=== PATIENT | female | born 1980 | race Caucasian/White ===

== ENCOUNTER 2017-04-09 21:54 | Inpatient (IN) | payer MEDICAID ==
[~2017-04-09] VITALS: Ht 152.4 cm; Wt 57.0 kg
[2017-04-09 22:46] LABS: MODE ROOM AIR; MetHgb Venous 0.1 %; Sample Type Blood venous; Venous COHb 0.3 %; Venous Total Hemglobin 11.2 g/dl
[2017-04-09 23:26] LABS: BASOPHILS % 0.6 % (0.0-2.0); EOSINOPHILS # 0.2 10^3/ul (0.0-0.5); EOSINOPHILS % 3.1 % (0.0-7.0); HEMATOCRIT 32.4 % (37.0-47.0); HEMOGLOBIN 11.2 g/dl (12.0-16.0); LYMPHOCYTES % 31.9 % (15.0-51.0); MEAN CORPUSCULAR HGB CONC 34.6 g/dl (32.0-37.0); MEAN CORPUSCULAR VOLUME 89.8 fl (82.0-101.0); MEAN PLATELET VOLUME 11.2 fl (7.4-10.4); MONOCYTE # 0.7 10^3/ul (0.3-0.9); MONOCYTES % 11.5 % (0.0-11.0); NEUTROPHIL # 3.4 10^3/ul (1.6-7.5); NEUTROPHILS % 52.7 % (39.0-77.0); PLATELET COUNT 293 10^3/UL (140-415); RED BLOOD COUNT 3.61 10^6/ul (4.20-5.40); RED CELL DISTRIBUTION WIDTH 13.4 % (11.5-14.5); WHITE BLOOD COUNT 6.4 10^3/ul (4.8-10.8)
--- NOTE | 2017-04-09 23:42 | RADRPT ---
PROCEDURE: XR Chest. CLINICAL INDICATION: Hyperglycemia TECHNIQUE: Single AP portable chest. COMPARISON: No prior Chest x-ray FINDINGS: Right dialysis catheter tip overlying the cavoatrial junction. The cardiac silhouette is at the upp er limits of normal in size. The lungs are clear without pleural effusion or focal consolidation. No pneumothorax. The osseous structures and soft tissues are unremarkable. IMPRESSION: 1. No evidence for active cardiopulmonary disease. RPTAT:AAJJ Physician Kyle Date Time Electronically viewed and signed by Physician Kyle on 04/09/2017 23:41 BHARGAV/
[2017-04-09 23:45] LABS: ALBUMIN 4.5 g/dl (3.3-4.9); ALBUMIN/GLOBULIN RATIO 1.12; CALCIUM 8.1 mg/dl (8.4-10.2); CREATININE 5.85 mg/dl (0.44-1.00); PHOSPHORUS 4.5 mg/dl (2.5-4.9); POTASSIUM 4.9 mmol/L (3.5-5.1); TOTAL PROTEIN 8.5 g/dl (6.1-8.1)
[2017-04-09] MEDS ORDERED: TYL500 PO (23:57)
[2017-04-09] MEDS ORDERED: PRAV40TA76 PO (23:57)
[2017-04-09] MEDS ORDERED: ACET-141 PO (23:57)
[2017-04-09] MEDS ORDERED: AMLO-147 PO (23:57)
[2017-04-10] VITALS (7 sets, daily range): BP systolic 149–189; BP diastolic 89–105; PULSE 78–83; RESP 16–20; TEMP 98.1; Ht 152.4 cm; Wt 57.0 kg
[2017-04-10] MEDS ORDERED: LOSA25TA5 PO (00:02)
[2017-04-10] MEDS ORDERED: ATOR40TA68 PO (00:02)
[2017-04-10] MEDS ORDERED: LANT3I SC (00:02)
[2017-04-10] MEDS ORDERED: CARV3.1260 PO (00:02)
--- NOTE | 2017-04-10 00:04 | RADRPT ---
PROCEDURE: Noncontrast CT Head. CLINICAL INDICATION: Seizure TECHNIQUE: Noncontrast CT of the head was obtained. The administered radiation dose was CTDI vol = 45 mGy, DLP = 720 mGy-cm. One or more of the following dose reduction techniques were used: automate d exposure control, adjustment of the mA and/or kV according to patient size and/or use of iterative reconstruction technique. COMPARISON: No pertinent prior examinations were submitted for comparison. FINDINGS: The ventricles and sulci are within normal limits. There is no acute intracranial hemorrhage or ext ra-axial fluid collection. There is no mass effect. No midline shift is identified. There is no loss of thomas-white differentiation to suggest acute infarction. The orbits are within normal limits. The paranasal sinuses and mastoid air cells are without fluid. No destructive osseous lesion is identified. IMPRESSION: No acute findings. RPTAT: HIKT .Oscar Morataya MD, MD Date Time Electronically viewed and signed by .Oscar Morataya MD, on 04/10/2017 00:03 .T/
[2017-04-10] MEDS ORDERED: PENT400T2 PO (00:06)
[2017-04-10] MEDS ORDERED: INSULIN HUMAN REGULAR 100 UNIT in SOD CHLORIDE 0.9% 99 ML IV STA (00:08)
--- NOTE | 2017-04-10 01:07 | ERA ---
ER Documentation Chief Complaint Date/Time DATE: 04/09/17 TIME: 22:20 Chief Complaint BIB RA FROM HOME FOR SEIZURE, NO HX OF, HIGH BLOOD GLUCOSE, HPI 36y/o diabetic, hypertensive, hyperlipidemic ESRD on hemodialysis T//Sat and left Cotton's palsy but no prior h/o seizures, presents to the ED via [facility] for evaluation of seizure. Patient reports several day h/o generalized malaise. Today, after dialysis experienced left sided tingling sensation and then, as per , loss consciousness and began shaking with seizure like activity and eyes rolling back for several minutes. No urinary or fecal incontinence. caught her and there was no head injury. Afterwards she was confused but now essentially back to baseline. Denies dizziness, headache, visual changes , neck or back pain. No chest pain, palpitations or shortness of breath. No URI symptoms cough or odynophagia. Denies abdominal pain, N/V/D/C. No skin rash. No anorexia, weight loss, night sweats, fevers or chills. ROS All systems reviewed and are negative except as per history of present illness. Medications Home Meds Reported Medications Pentoxifylline* (Pentoxifylline*) 400 Mg Tablet.sa, 400 MG PO DAILY, TAB 04/10/17 Atorvastatin* (Atorvastatin*) 40 Mg Tablet, 40 MG PO QHS, #30 TAB 04/10/17 Carvedilol* (Carvedilol*) 3.125 Mg Tablet, 3.125 MG PO BID, #60 TAB 04/10/17 Insulin Glargine* (Lantus*) 100 Unit/Ml Soln, 20 UNIT SC QHS, #1 VIAL 04/10/17 Losartan Potassium* (Losartan Potassium*) 25 Mg Tablet, 25 MG PO DAILY Y for HTN , TAB 04/10/17 Amlodipine Besylate* (Amlodipine Besylate*) 10 Mg Tablet, 10 MG PO DAILY for HTN , #30 TAB 04/09/17 Pravastatin Sodium* (Pravastatin Sodium*) 40 Mg Tablet, 40 MG PO HS, TAB 04/09/17 Acetaminophen* (Acetaminophen*) 500 MG Extra Strength Tablet, 500 MG PO Q4H Y for PAIN AND OR ELEVATED TEMP, TAB 04/09/17 Discontinued Reported Medications Acetaminophen* (Tylenol*) 500 Mg Tab, 1000 MG PO Q4H Y for PAIN AND OR ELEVATED TEMP, TAB 04/09/17 Allergies Allergies: Coded Allergies: No Known Allergy (Unverified , 04/09/17) PMhx/Soc Reviewed in chart. As per HPI. History of Surgery: Yes ([facility], RT CHEST DIALYSIS ACCESS) Anesthesia Reaction: No Hx Neurological Disorder: No Hx Respiratory Disorders: No Hx Cardiac Disorders: Yes (HTN ) Hx Psychiatric Problems: No Hx Miscellaneous Medical Probl: Yes (DM, HIGH CHOLESTEROL, RENAL FAILURE DIALYSIS (TUE, THUR, SAT)) Hx Alcohol Use: No Hx Substance Use: No Hx Tobacco Use: No Smoking Status: Never smoker FmHx Diabetes but no seizures, cancer or sudden Physical Exam Vitals T:98.6 P:95 R:18 BP:195/116 Pulse Ox: 98% on RA Physical Exam Const: Alert, anxious, moderate distress Head: Atraumatic Eyes: Normal Conjunctiva. RODGER. EOMI. No nystagmus. ENT: Normal External Ears, Nose and Mouth. No intraoral lacerations. Neck: Full range of motion. Nontender. No meningismus. Resp: Clear to auscultation bilaterally Cardio: Regular rate and rhythm, no murmurs Chest Wall: Right Ihra-A-Cath. Nontender. No erythema or induration. Abd: Soft, non tender, non distended. Normal bowel sounds. No masses. Skin: No petechiae or rashes Back: No midline or flank tenderness Ext: No cyanosis, or edema Neur: Awake and alert. Other than Left facial palsy, Cranial Nerves II-XII grossly intact. Motor & sensory equal bilaterally. Psych: Normal Mood and Affect Result Diagram: 04/11/17 1128 04/11/17 1128 Results 24 hrs Laboratory Tests Test 04/09/17 22:24 04/09/17 22:29 04/09/17 22:30 04/10/17 01:02 Bedside Glucose 587mg/dL > 595mg/dL Blood Gas Specimen Source Blood venous Arterial Blood Date Drawn 04/09/2017 10:38:20 PM Arterial Blood Gas Puncture Site VENOUS LINE Aguilar Test N/A Venous Blood pH 7.400 Venous Blood pCO2 (Temp Corrected) 49.0mmHG Venous Blood pO2 (Temp Corrected) 37.1mmHG Venous Blood HCO3 29.7mmol/L Venous Blood Oxygen Saturation 70.3mmHG Venous Blood Base Excess 4.1mmol/L Venous Blood Total Hemoglobin 11.2g/dl Venous Blood Oxyhemoglobin 70.0% Venous Blood Methemoglobin 0.1% Carboxyhemoglobin 0.3% Blood Gas Temperature 37.0C Blood Gas Modality ROOM AIR FiO2 21.0% Blood Gas Notified Whom AA Blood Gas Notified Time 04/09/2017 10:46:06 PM White Blood Count 6.410^3/ul Red Blood Count 3.6110^6/ul Hemoglobin 11.2g/dl Hematocrit 32.4% Mean Corpuscular Volume 89.8fl Mean Corpuscular Hemoglobin 31.0pg Mean Corpuscular Hemoglobin Concent 34.6g/dl Red Cell Distribution Width 13.4% Platelet Count 88035^3/UL Mean Platelet Volume 11.2fl Neutrophils % 52.7% Lymphocytes % 31.9% Monocytes % 11.5% Eosinophils % 3.1% Basophils % 0.6% Nucleated Red Blood Cells % 0.0/100WBC Neutrophils # 3.410^3/ul Lymphocytes # 2.010^3/ul Monocytes # 0.710^3/ul Eosinophils # 0.210^3/ul Basophils # 0.010^3/ul Nucleated Red Blood Cells # 0.010^3/ul Sodium Level 132mmol/L Potassium Level 4.9mmol/L Chloride Level 88mmol/L Carbon Dioxide Level 29mmol/L Anion Gap 20 Blood Urea Nitrogen 27mg/dl Creatinine 5.85mg/dl Glucose Level 631mg/dl Hemoglobin A1c 10.3% Calcium Level 8.1mg/dl Phosphorus Level 4.5mg/dl Magnesium Level 2.0mg/dl Total Bilirubin 0.0mg/dl Direct Bilirubin 0.00mg/dl Indirect Bilirubin 0.0mg/dl Aspartate Amino Transf (AST/SGOT) 46IU/L Alanine Aminotransferase (ALT/SGPT) 13IU/L Alkaline Phosphatase 198IU/L Total Protein 8.5g/dl Albumin 4.5g/dl Globulin 4.00g/dl Albumin/Globulin Ratio 1.12 Test 04/10/17 02:00 Bedside Glucose > 595mg/dL Current Medications Medications (Trade) Dose Ordered Sig/Asaf Route PRN Reason Start Time Stop Time Status Last Admin Dose Admin Insulin Human Regular/Sodium Chloride (Novolin-R/NS) 100 ml @ 0 mls/hr TITRATE STAT IV 04/10/17 00:08 04/10/17 10:40 DC 04/10/17 01:07 Ondansetron HCl (Zofran Inj) 4 mg Q6H PRN IV NAUSEA AND/OR VOMITING 04/10/17 02:30 04/11/17 18:02 DC Acetaminophen (Tylenol Liquid) 650 mg Q6H PRN PO PAIN LEVEL 1-3 OR FEVER 04/10/17 02:30 04/10/17 17:16 DC Dextrose (D50w Syringe) 50 ml Q15M PRN IV For BS 50 or less 04/10/17 02:30 04/10/17 04:39 DC Dextrose (D50w Syringe) 25 ml Q15M PRN IV BS between 50-70 04/10/17 02:30 04/10/17 04:39 DC Diagnostic Test (Pha) (Accu-Chek) 1 ea Q1H XX 04/10/17 02:30 04/10/17 04:35 DC 04/10/17 04:01 Miscellaneous Information (* Miscellaneous Pharmacy Order) HYPOGLYCEMIA TREATMENT HYPOGLYCEM PROTOCOL PRN XX Hypoglycemia (BS < 70) 04/10/17 02:30 04/11/17 18:02 DC EKG: TIME: 23:15. Sinus rhythm. Ventricular rate 96. Voltage criteria for left ventricular hypertrophy. No acute ST segment elevation or depression. No ectopy. EP Interpretation: Abnormal EKG. IMAGING: PROCEDURE: XR Chest. CLINICAL INDICATION: Hyperglycemia TECHNIQUE: Single AP portable chest. COMPARISON: No prior Chest x-ray FINDINGS: Right dialysis catheter tip overlying the cavoatrial junction. The cardiac silhouette is at the upper limits of normal in size. The lungs are clear without pleural effusion or focal consolidation. No pneumothorax. The osseous structures and soft tissues are unremarkable. IMPRESSION: 1. No evidence for active cardiopulmonary disease. RPTAT:AAJJ Physician Kyle Date Time Electronically viewed and signed by Physician Kyle on 04/09/2017 23:41 BHARGAV/ PROCEDURE: Noncontrast CT Head. CLINICAL INDICATION: Seizure TECHNIQUE: Noncontrast CT of the head was obtained. The administered radiation dose was CTDI vol = 45 mGy, DLP = 720 mGy-cm. One or more of the following dose reduction techniques were used: automated exposure control, adjustment of the mA and/or kV according to patient size and/or use of iterative reconstruction technique. COMPARISON: No pertinent prior examinations were submitted for comparison. FINDINGS: The ventricles and sulci are within normal limits. There is no acute intracranial hemorrhage or extra-axial fluid collection. There is no mass effect. No midline shift is identified. There is no loss of thomas-white differentiation to suggest acute infarction. The orbits are within normal limits. The paranasal sinuses and mastoid air cells are without fluid. No destructive osseous lesion is identified. IMPRESSION: No acute findings. 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 First time seizure as witnessed by . CT of the brain performed to rule out mass, bleed, infarct or hydrocephalus is negative. No cardiac dysrhythmia. Critical hyperglycemia with appropriate hyponatremia, IV insulin drip initiated. No DKA or HHS. No headache or signs of meningitis encephalitis or SAH, hence LP deferred. 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 Admit to ICU. CRITICAL CARE STATEMENT: Due to the high probability of sudden clinically significant hemodynamic, cardiovascular and neurologic deterioration, this patient with new onset seizures and critical hyperglycemia requiring Insulin drip necessitated the highest level of my preparedness for sudden, emergent intervention. I provided critical care services, which included extensive review of previous medical records, medication orders, frequent reevaluations of the patients condition and response to treatment, ordering of tests, interpretation of relevant clinical data, and arranging for ongoing care with the admitting physician. Total critical care time associated with the care of this patient, not including other separately reportable procedures: 35 minutes. Counseled patient and family regarding diagnosis, diagnostic results and plan for admission. CALLS/CONSULTS: Time 23:30, Dr. Andrew, Recommends Insulin drip and ICU admission. PATIENT CARE TRANSITIONED: Time: 23:40, Dr. Andrew. Departure Diagnosis: Primary Impression: New onset seizure Additional Impressions: Diabetes mellitus out of control Qualified Code: E13.8 - Uncontrolled other specified diabetes mellitus with complication, without long-term current use of insulin End stage renal disease on dialysis Poorly-controlled hypertension Condition: Critical СЕРГЕЙ RATLIFF MD Apr 10, 2017 01:06
[2017-04-10] MEDS ORDERED: DEXTROSE 50% 50 ML SYRINGE IV PRN ×4 (02:30→05:00)
[2017-04-10] MEDS ORDERED: ONDANSETRON 4 MG INJ IV PRN (02:30)
[2017-04-10] MEDS ORDERED: ACETAMINOPHEN 650MG/20.3ML CUP PO PRN (02:30)
[2017-04-10] MEDS ORDERED: INSULIN HUMAN REGULAR 100 UNIT in SOD CHLORIDE 0.9% 99 ML IV SCH (02:45)
[2017-04-10] MEDS: ACCU-CHEK XX SCH ×2 (03:07→04:01)
[2017-04-10 04:16] LABS: CK-MB 1.42 ng/ml (0.0-2.4)
[2017-04-10 04:31] LABS: TROPONIN-I 0.154 ng/ml (0.00-0.12)
[2017-04-10] MEDS ORDERED: GLUCOSE GEL 15 GRAM TUBE BUCCAL PRN (05:00)
[2017-04-10] MEDS ORDERED: INSULIN ASPART [NOVOLOG] 3 ML PEN SC SCH (05:00)
[2017-04-10] MEDS ORDERED: GLUCAGON 1 MG INJ IM PRN (05:00)
[2017-04-10] MEDS ORDERED: GLUCOSE GEL 15 GRAM TUBE PO PRN ×2 (05:00)
[2017-04-10] MEDS ORDERED: PANTOPRAZOLE 40 MG INJ IV SCH (06:00)
--- NOTE | 2017-04-10 07:27 | HP ---
Date/Time of Note Date/Time of Note DATE: 04/10/17 TIME: 07:12 Assessment/Plan VTE Prophylaxis VTE Prophylaxis Intervention: SCD's Assessment/Plan Chief Complaint/Hosp Course This is a 36 year female being admitted to the ICU floor for: #1 severe hyperglycemia: Patient came in with blood sugar reading greater than 600, though patient does not appear to be in any DKA. PH was 7.4 and bicarbonate BMP was 29. As the patient apparently had new onset seizure the decision was made to control the patient's blood sugars on an insulin drip in the ICU. Once patient's blood sugar is better stabilized patient can likely be downgraded to telemetry. Will monitor the blood sugars every 4 hours. Insulin drip per DKA protocol. Repeat CMP and replete electrolytes as indicated. #2 new onset seizure: Etiology unknown at this time likely could be secondary to hyperglycemia versus other underlying etiology. CAT scan within normal values. Will order MRI of the brain to further evaluate. Will consult neurology. Neurochecks every 4 hours. Ativan as needed #3 end-stage renal disease: Patient is on hemodialysis on Saturday. She recently had her dialysis earlier today. Will avoid nephrotoxic agents. Will consult nephrology for further treatment strategy. Patient has a right chest dialysis catheter #4 hypertension: We will continue to monitor and resume patient's home medications #5 hyperlipidemia: Continue statin. #6 DVT GI prophylaxis: SCDs, acid hermila Further treatment strategy will be implemented as per the clinical course Problems: HPI/ROS Admit Date/Time Admit Date/Time Hx of Present Illness Chief complaint: Seizure This is a 36 her female who comes in today complaining of having seizure. Patient states that for the past few days she has not felt well. She states that she did have dialysis earlier in the day. After dialysis she states that she was walking and she she felt a tingling in her leg and while she was walking she started feeling lightheaded and fainted her was there to catch her. states that the patient passed out and that she started having jerking movements and she was unconscious. It took her some time to recover after the jerking movement stopped. Patient reports that she is compliant with her diabetes medication however she does not check her blood glucose levels daily. She denies any recent illnesses or sick contacts. She denies any recent fevers. Allergies: NKDA Medications: See ANTONIO DE LA FUENT[facility] Const: As per HPI Eyes : No pain discharge or redness or change in visual acuity ENT: No pain, sore throat, congestion, congestion, dysphagia or discharge Respiratory: No shortness of breath, cough, sputum, wheezing, or pleuritic pain Cardiovascular: No chest pain, palpitation, PND, or edema GI : no change in appetite, abdominal pain, nausea, vomiting, diarrhea, constipation, or change in the color his stool Genitourinary: No dysuria, hematuria, flank pain , discharge or CVA tenderness Musculoskeletal: No joint pain, back pain, neck pain, restricted range of motion in neck or joints Skin: No rash, bruising or hives Neuro: As per HPI Endocrine: As per HPI Psych: No hallucination, depression, anxiety or suicidal ideation PMH/Family/Social Past Medical History Diabetes mellitus, end-stage renal disease on HD Saturday, hypertension, hyperlipidemia Past Surgical History Bilateral eye surgery, right chest dialysis catheter Family History Significant Family History: diabetes Social History Alcohol Use: none Smoking Status: Never smoker Drug Use: none Exam/Review of Systems Vital Signs Vitals Vital Signs Date Time Temp Pulse Resp B/P Pulse Ox O2 Delivery O2 Flow Rate FiO2 04/10/17 07:00 78 14 167/94 97 Room Air 04/10/17 05:00 98.6 Exam Exam General: Patient is a well-developed female lying in bed in no acute distress HEENT: Atraumatic, normocephalic. The pupils are equal, round and reactive. Extraocular motor are intact Neck: Supple with full range of motion. No rigidity or meningismus Chest: Right chest dialysis catheter in place Lungs: Clear to auscultation bilaterally no crackles rales or wheezing Heart: Normal S1-S2, Regular rhythm and rate. No overt murmurs appreciated Abdomen: Soft , nontender, nondistended , bowel sounds are present. No guarding no rebound tenderness , No masses or organomegaly. No costovertebral temporal angle mass Extremities: Normal to inspection, no edema no cyanosis Neurologic: Normal mental status, speech normal, cranial nerves II through XII are intact, motor and sensory are intact, no focal weakness Additional Comments PROCEDURE: Noncontrast CT Head. CLINICAL INDICATION: Seizure TECHNIQUE: Noncontrast CT of the head was obtained. The administered radiation dose was CTDI vol = 45 mGy, DLP = 720 mGy-cm. One or more of the following dose reduction techniques were used: automated exposure control, adjustment of the mA and/or kV according to patient size and/or use of iterative reconstruction technique. COMPARISON: No pertinent prior examinations were submitted for comparison. FINDINGS: The ventricles and sulci are within normal limits. There is no acute intracranial hemorrhage or extra-axial fluid collection. There is no mass effect. No midline shift is identified. There is no loss of thomas-white differentiation to suggest acute infarction. The orbits are within normal limits. The paranasal sinuses and mastoid air cells are without fluid. No destructive osseous lesion is identified. IMPRESSION: No acute findings. RPTAT: HIKT .Oscar Morataya MD, Date Time Electronically viewed and signed by .Oscar Morataya MD, MD on 04/10/2017 00:03 .T/ CC: СЕРГЕЙ ARTLIFF MD PROCEDURE: XR Chest. CLINICAL INDICATION: Hyperglycemia TECHNIQUE: Single AP portable chest. COMPARISON: No prior Chest x-ray FINDINGS: Right dialysis catheter tip overlying the cavoatrial junction. The cardiac silhouette is at the upper limits of normal in size. The lungs are clear without pleural effusion or focal consolidation. No pneumothorax. The osseous structures and soft tissues are unremarkable. IMPRESSION: 1. No evidence for active cardiopulmonary disease. RPTAT:AAJJ Physician Kyle Date Time Electronically viewed and signed by Physician Kyle on 04/09/2017 23:41 BHARGAV/ CC: СЕРГЕЙ RATLIFF MD Sinus rhythm. Ventricular rate 96. Voltage criteria for left ventricular hypertrophy. No acute ST segment elevation or depression. No ectopy. EP Interpretation As per ED physician augmentation Labs Result Diagram: 10/09/21 [id number]/[id number] Medications Medications Current Medications Ondansetron HCl (Zofran Inj) 4 mg Q6H PRN IV NAUSEA AND/OR VOMITING; Start 04/10/17 at 02:30 Acetaminophen (Tylenol Liquid) 650 mg Q6H PRN PO PAIN LEVEL 1-3 OR FEVER; Start 04/10/17 at 02:30 Pantoprazole (Protonix Iv) 40 mg DAILY@06 IV Last administered on 04/10/17t 06: 06; Admin Dose 40 MG; Start 04/10/17 at 06:00 Insulin Aspart (Novolog Insulin Pen) NOVOLOG *MODERATE* ALGORI... Q4 SC ; Start 04/10/17 at 05:00; Stop 04/10/17 at 07:59 Miscellaneous Information 1 ea NOTE XX ; Start 04/10/17 at 05:00 Glucose (Glutose) 15 gm Q15M PRN PO DECREASED GLUCOSE; Start 04/10/17 at 05:00 Glucose (Glutose) 22.5 gm Q15M PRN PO DECREASED GLUCOSE; Start 04/10/17 at 05: 00 Dextrose (D50w Syringe) 25 ml Q15M PRN IV DECREASED GLUCOSE; Start 04/10/17 at 05:00 Dextrose (D50w Syringe) 50 ml Q15M PRN IV DECREASED GLUCOSE; Start 04/10/17 at 05:00 Glucagon (Glucagen) 1 mg Q15M PRN IM DECREASED GLUCOSE; Start 04/10/17 at 05:00 Glucose (Glutose) 15 gm Q15M PRN BUCCAL DECREASED GLUCOSE; Start 04/10/17 at 05 :00 Diagnostic Test (Pha) (Accu-Chek) 1 ea 02 XX ; Start 04/11/17 at 02:00 DALIA CHAMPAGNE Apr 10, 2017 07:24
[2017-04-10] MEDS ORDERED: LORAZEPAM 2 MG INJ IV PRN (07:30)
[2017-04-10] MEDS: INSULIN ASPART [NOVOLOG] 3 ML PEN SC SCH ×5 (07:46→20:31)
[2017-04-10 08:22] LABS: ALBUMIN 3.9 g/dl (3.3-4.9); CALCIUM 8.2 mg/dl (8.4-10.2); CREATININE 6.71 mg/dl (0.44-1.00); POTASSIUM 4.2 mmol/L (3.5-5.1); TOTAL PROTEIN 7.8 g/dl (6.1-8.1)
[2017-04-10 09:23] LABS: CK-MB 1.31 ng/ml (0.0-2.4)
[2017-04-10 09:28] LABS: TROPONIN-I 0.161 ng/ml (0.00-0.12)
[2017-04-10] MEDS: INSULIN GLARGINE [LANtus] 3 ML PEN SC SCH (11:06)
--- NOTE | 2017-04-10 12:32 | CONS ---
Date/Time of Note Date/Time of Note DATE: 04/10/17 TIME: 12:28 Assessment/Plan Assessment/Plan Chief Complaint/Hosp Course 36 yo female with IDDM, ESRD, HTN, Left Cotton's Palsy admitted with severe hyperglycemia Glucose >600 with witnessed seizure activity. No further seizures reported suspect etiology secondary to hyperglycemia. Will obtain MRI Brain w/o contrast and baseline Routine EEG will hold off on initiated AED at this time, if further seizures will recommend treatment seizure precautions, ativan prn seizure activity infectious w/u, maintain euglycemia will follow Problems: Consultation Date/Type/Reason Admit Date/Time 04/10/17 Date of Consultation: Apr 10, 2017 Type of Consultation: Neurology Reason for Consultation seizure Referring Provider: DALIA CHAMPAGNE Hx of Present Illness 36 year old female with IDDM with severe hyperglycemia glucose over 600 range, Left [place] Palsy 3 mo ago, ESRD, HTN admitted after generalized seizure lasting 5 mins a/w tongue biting and LOC. She was started on insulin drip for DKA protocol, remains stable no further seizures. She denies hx of seizure in the past. 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, nl mental status, nl speech, nl strength ( Left [place] Palsy peripheral facial weakness) Results Result Diagram: 04/09/17222904/10/17 0733 Results 24 hrs Laboratory Tests Test 04/09/17 22:24 04/09/17 22:29 04/09/17 22:30 04/10/17 01:02 Bedside Glucose 587 *H > 595 *H Blood Gas Specimen Source Blood venous Arterial Blood Date Drawn 04/09/2017 10:38:20 PM Arterial Blood Gas Puncture Site VENOUS LINE Aguilar Test N/A Venous Blood pH 7.400 Venous Blood pCO2 (Temp Corrected) 49.0 H Venous Blood pO2 (Temp Corrected) 37.1 H Venous Blood HCO3 29.7 H Venous Blood Oxygen Saturation 70.3 Venous Blood Base Excess 4.1 Venous Blood Total Hemoglobin 11.2 Venous Blood Oxyhemoglobin 70.0 Venous Blood Methemoglobin 0.1 Carboxyhemoglobin 0.3 Blood Gas Temperature 37.0 Blood Gas Modality ROOM AIR FiO2 21.0 Blood Gas Notified Whom AA Blood Gas Notified Time 04/09/2017 10:46:06 PM White Blood Count 6.4 Red Blood Count 3.61 L Hemoglobin 11.2 L Hematocrit 32.4 L Mean Corpuscular Volume 89.8 Mean Corpuscular Hemoglobin 31.0 Mean Corpuscular Hemoglobin Concent 34.6 Red Cell Distribution Width 13.4 Platelet Count 293 Mean Platelet Volume 11.2 H Neutrophils % 52.7 Lymphocytes % 31.9 Monocytes % 11.5 H Eosinophils % 3.1 Basophils % 0.6 Nucleated Red Blood Cells % 0.0 Neutrophils # 3.4 Lymphocytes # 2.0 Monocytes # 0.7 Eosinophils # 0.2 Basophils # 0.0 Nucleated Red Blood Cells # 0.0 Sodium Level 132 L Potassium Level 4.9 Chloride Level 88 L Carbon Dioxide Level 29 Anion Gap 20 H Blood Urea Nitrogen 27 H Creatinine 5.85 H Glucose Level 631 *H Hemoglobin A1c 10.3 H Calcium Level 8.1 L Phosphorus Level 4.5 Magnesium Level 2.0 Total Bilirubin 0.0 L Direct Bilirubin 0.00 Indirect Bilirubin 0.0 Aspartate Amino Transf (AST/SGOT) 46 Alanine Aminotransferase (ALT/SGPT) 13 Alkaline Phosphatase 198 H Total Protein 8.5 H Albumin 4.5 Globulin 4.00 H Albumin/Globulin Ratio 1.12 Test 04/10/17 02:00 04/10/17 03:00 04/10/17 03:20 04/10/17 04:00 Bedside Glucose > 595 *H 333 H 153 Phosphorus Level 4.8 Creatine Kinase 152 Creatine Kinase Index 0.9 Creatinine Kinase MB (Mass) 1.42 Troponin I 0.154 *H Test 04/10/17 05:09 04/10/17 07:33 04/10/17 07:35 04/10/17 11:03 Bedside Glucose 94 159 172 Sodium Level 136 Potassium Level 4.2 Chloride Level 97 Carbon Dioxide Level 28 Anion Gap 15 Blood Urea Nitrogen 35 H Creatinine 6.71 H Glucose Level 152 # Hemoglobin A1c 10.6 H Calcium Level 8.2 L Total Bilirubin 0.0 L Direct Bilirubin 0.00 Indirect Bilirubin 0.0 Aspartate Amino Transf (AST/SGOT) 44 Alanine Aminotransferase (ALT/SGPT) 19 Alkaline Phosphatase 163 H Creatine Kinase 152 Creatine Kinase Index 0.9 Creatinine Kinase MB (Mass) 1.31 Troponin I 0.161 *H Total Protein 7.8 Albumin 3.9 Globulin 3.90 H Albumin/Globulin Ratio 1.00 Medications Medications Current Medications Ondansetron HCl (Zofran Inj) 4 mg Q6H PRN IV NAUSEA AND/OR VOMITING; Start 04/10/17 at 02:30 Acetaminophen (Tylenol Liquid) 650 mg Q6H PRN PO PAIN LEVEL 1-3 OR FEVER; Start 04/10/17 at 02:30 Pantoprazole (Protonix Iv) 40 mg DAILY@06 IV Last administered on 04/10/17 06: 06; Admin Dose 40 MG; Start 04/10/17 at 06:00 Miscellaneous Information 1 ea NOTE XX ; Start 04/10/17 at 05:00 Glucose (Glutose) 15 gm Q15M PRN PO DECREASED GLUCOSE; Start 04/10/17 at 05:00 Glucose (Glutose) 22.5 gm Q15M PRN PO DECREASED GLUCOSE; Start 04/10/17 at 05: 00 Dextrose (D50w Syringe) 25 ml Q15M PRN IV DECREASED GLUCOSE; Start 04/10/17 at 05:00 Dextrose (D50w Syringe) 50 ml Q15M PRN IV DECREASED GLUCOSE; Start 04/10/17 at 05:00 Glucagon (Glucagen) 1 mg Q15M PRN IM DECREASED GLUCOSE; Start 04/10/17 at 05:00 Glucose (Glutose) 15 gm Q15M PRN BUCCAL DECREASED GLUCOSE; Start 04/10/17 at 05 :00 Diagnostic Test (Pha) (Accu-Chek) 1 ea 02 XX ; Start 04/11/17 at 02:00 Lorazepam (Ativan) 1 mg Q2H PRN IV SEIZURES; Start 04/10/17 at 07:30 Insulin Glargine (Lantus) 15 unit DAILY SC Last administered on 04/10/17 11:06 ; Admin Dose 15 UNIT; Start 04/10/17 at 11:00 DANE SUTHERLAND MD Apr 10, 2017 12:32
[2017-04-10] MEDS: AMLODIPINE 10 MG TAB PO SCH (17:30)
[2017-04-10] MEDS ORDERED: ACETAMINOPHEN 500 MG TAB PO PRN (17:30)
[2017-04-10] MEDS ORDERED: INSULIN GLARGINE [LANtus] 3 ML PEN SC SCH (21:00)
[2017-04-10] MEDS ORDERED: ATORVASTATIN 40 MG TAB PO SCH (21:00)
[2017-04-10] MEDS ORDERED: ATORVASTATIN 10 MG TAB PO SCH (21:00)
[2017-04-11] VITALS (18 sets, daily range): BP systolic 128–161; BP diastolic 72–92; PULSE 75–88; RESP 20–22
--- NOTE | 2017-04-11 00:13 | RADRPT ---
PROCEDURE: MR Brain noncontrast. CLINICAL INDICATION: Seizure TECHNIQUE: Multiplanar multisequence noncontrast MRI of the brain was performed. COMPARISON: CT brain 04/09/2017 FINDINGS: There is no restricted diffusion to suggest acute ischemia/infarct. There is no evidence of acute in tracranial hemorrhage, midline shift, or mass effect. No extra-axial collection is seen. GRE images show no evidence of hemosiderin deposition. The cerebral sulci and ventricles are within normal limi ts in size and configuration for patient's age. Several small T2 / FLAIR hyperintense foci scattered in the bilateral frontal periventricular, deep, and juxta cortical cerebral white matter are nonspe cific in appearance. A small T2 / FLAIR hyperintense, T1 hypointense lesion in the left central bennie is also noted. At least one lesion located in the left frontal ohara radiata demonstrates correspo nding T1 hypointensity (series 9, image 72). Differential considerations include: chronic microangi opathic change, demyelinating process, sequelae of complicated migraine, and sequelae of other infla mmatory/infectious etiologies. The bilateral mesial temporal lobe structures are normal and symmetric in size, morphology, and signal intensity. The sella, parasellar, and suprasellar regions are grossly unremarkable. The cerebellum is normal in size, morphology and signal intensity. The int racranial large vascular flow voids are preserved, suggesting patency. 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 There is suggestion of prior bilateral cataract surgery. There is mild mucosal thi ckening in the bilateral ethmoid sinuses, right sphenoid sinus, and right maxillary sinus. No air-fl uid levels are seen to suggest acute sinusitis. The mastoid air cells are clear. No destructive osse ous lesion is identified. IMPRESSION: 1. No evidence of acute ischemia/infarct, intracranial hemorrhage, midline shift, or extra-axial col lection. 2. Several small T2 / FLAIR hyperintense foci, some with corresponding T1 hypointensity are seen in the bifrontal cerebral white matter and one in the left central bennie. The imaging features are nonsp ecific. Differential considerations include: chronic microangiopathic change, demyelinating process , sequelae of complicated migraine, and sequelae of other inflammatory/infectious etiologies. 3. Mild paranasal sinus mucosal thickening without air-fluid levels to suggest acute sinusitis. RPTAT: HRC Portia Jacinto Physician Date Time Electronically viewed and signed by Portia Jacinto, Physician on 04/11/2017 00:12 /
--- NOTE | 2017-04-11 01:15 | CONS ---
DATE OF ADMISSION: 04/10/2017 DATE OF CONSULTATION: TYPE OF CONSULTATION: Nephrology. REASON FOR CONSULTATION: End-stage renal disease. REQUESTING PHYSICIAN: Dr. 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 T he patient stated after dialysis, she was walking and she felt suddenly a tingling in her leg and wh en she was walking, started feeling lightheaded and fainted. Patient then started having jerky move ments that lasted for a few minutes. The patient was then brought to [facility]. Upon arrival, the patient had a CT scan of the brain which showed no acute findings. In the emerge ncy room, the patient was given IV fluids. In terms of patient's renal history, she has been on dialysis for approximately 3 months due to unde rlying diabetes. The patient dialyzes on Saturday, , Saturday and her next scheduled dialysi s is scheduled for tomorrow. The patient otherwise denies any hemoptysis, hemetemesis, hematochezia . PAST MEDICAL HISTORY: As stated above, history of end-stage renal disease, history of diabetes, hyp ertension, dyslipidemia. PAST SURGICAL HISTORY: Status post Perm-A-Cath placement. ALLERGIES: NONE. FAMILY HISTORY: No family history of kidney disease or heart disease. SOCIAL HISTORY: Does not drink, smoke or do drugs. MEDICATIONS: Reviewed. REVIEW OF SYSTEMS: A 14-point review of systems was conducted. Pertinent positives in HPI, otherwi se negative. PHYSICAL EXAMINATION: VITAL SIGNS: Blood pressure is 171/100, respirations 17, pulse 81, temperature 98.0. HEENT: Head is normocephalic. NECK: Supple. HEART: Regular rate. LUNGS: Show diminished breath sounds at base. ABDOMEN: Soft, nontender to palpation. No rebound or guarding. EXTREMITIES: Negative for clubbing, cyanosis, no edema. DERMATOLOGIC: No rashes. MUSCULOSKELETAL: No joint effusions. NEUROLOGIC: No focal deficits. LABORATORY DATA: Shows sodium 136, potassium 4.2, chloride 97, BUN 35, creatinine 6.71. White coun t 6.1, hemoglobin 9.2, hematocrit 32.5, platelet count 293. The patient's chest x-ray shows no acut e findings. ASSESSMENT AND PLAN: This is a 36-year-old female who presents with: 1. End-stage renal disease. The patient is on dialysis Saturday, , Saturday, access is a Pe rm-A-Cath. Plan for hemodialysis tomorrow. 2. Anemia. Monitor hemoglobin and hematocrit levels. Continue Epogen with hemodialysis as needed. 3. Hypertension. Continue current blood pressure regimen. 4. Mineral bone disorder. Monitor calcium and phosphorus levels. 5. New onset seizure. Continue to monitor. Follow up with neurology. 6. Diabetes. Continue current insulin regimen. Thank you, Dr. Andrew, for this interesting consult. It will be a pleasure to follow the patient w michelle waldrop throughout the hospital course. Dictated By: NIDA MCNAMARA/BG Conf#: [id number] DID#: [id number]
[2017-04-11] MEDS ORDERED: ACCUCHECK AT 2AM (Patients on SS coverage) XX SCH (02:00)
[2017-04-11] MEDS ORDERED: ACCU-CHEK XX SCH ×2 (02:00)
[2017-04-11] MEDS: INSULIN ASPART [NOVOLOG] 3 ML PEN SC SCH ×6 (07:55→17:42)
[2017-04-11] MEDS: AMLODIPINE 10 MG TAB PO SCH (08:08)
[2017-04-11] MEDS ORDERED: PENTOXIFYLLINE (SR) 400 MG TAB PO SCH (09:00)
[2017-04-11] MEDS: INSULIN GLARGINE [LANtus] 3 ML PEN SC SCH (09:56)
--- NOTE | 2017-04-11 10:40 | CONS ---
Date/Time of Note Date/Time of Note DATE: 04/11/17 TIME: 10:39 Consult Date/Type/Reason Admit Date/Time Apr 10, 2017 at 02:33 Initial Consult Date 04/10/17 Type of Consultation: Neurology Reason for Consultation seizure hyperglycemia Ordering Provider: DALIA CHMAPAGNE Subjective no seizures overnight no new complaints Objective Vital Signs Date Time Temp Pulse Resp B/P Pulse Ox O2 Delivery O2 Flow Rate FiO2 04/11/17 08:07 78 04/11/17 07:49 98.3 20 155/88 96 04/10/17 17:09 Room Air Intake and Output 04/10/17 04/10/17 04/11/17 15:00 23:00 07:00 Intake Total 460 ml 180 ml Balance 460 ml 180 ml Exam Constitutional: alert, oriented, well developed Psych: no complaints 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, nl mental status, nl speech, nl strength ( Left [place] Palsy peripheral facial weakness) Results/Medications Result Diagram: 04/09/17 2230 04/10/17 0733 Results 24 hrs Laboratory Tests Test 04/10/17 11:03 04/10/17 17:11 04/10/17 20:27 04/11/17 01:35 Bedside Glucose 172 88 251 H 138 Test 04/11/17 08:03 04/11/17 08:05 04/11/17 09:42 Phosphorus Level 8.7 #H Bedside Glucose 112 178 Medications Current Medications Ondansetron HCl (Zofran Inj) 4 mg Q6H PRN IV NAUSEA AND/OR VOMITING; Start 04/10/17 at 02:30 Miscellaneous Information 1 ea NOTE XX ; Start 04/10/17 at 05:00 Glucose (Glutose) 15 gm Q15M PRN PO DECREASED GLUCOSE; Start 04/10/17 at 05:00 Glucose (Glutose) 22.5 gm Q15M PRN PO DECREASED GLUCOSE; Start 04/10/17 at 05: 00 Dextrose (D50w Syringe) 25 ml Q15M PRN IV DECREASED GLUCOSE; Start 04/10/17 at 05:00 Dextrose (D50w Syringe) 50 ml Q15M PRN IV DECREASED GLUCOSE; Start 04/10/17 at 05:00 Glucagon (Glucagen) 1 mg Q15M PRN IM DECREASED GLUCOSE; Start 04/10/17 at 05:00 Glucose (Glutose) 15 gm Q15M PRN BUCCAL DECREASED GLUCOSE; Start 04/10/17 at 05 :00 Lorazepam (Ativan) 1 mg Q2H PRN IV SEIZURES; Start 04/10/17 at 07:30 Insulin Glargine (Lantus) 15 unit DAILY SC Last administered on 04/11/17 09:56 ; Admin Dose 15 UNIT; Start 04/10/17 at 11:00 Diagnostic Test (Pha) (Accu-Chek) 1 ea 02 XX ; Start 04/11/17 at 02:00 Acetaminophen (Tylenol Tab) 500 mg Q4H PRN PO PAIN AND OR ELEVATED TEMP; Start 04/10/17 at 17:30 Amlodipine Besylate (Norvasc) 10 mg DAILY PO Last administered on 04/11/17 08: 08; Admin Dose 10 MG; Start 04/10/17 at 17:30 Atorvastatin Calcium (Lipitor) 40 mg QHS PO Last administered on 04/10/17 20: 29; Admin Dose 40 MG; Start 04/10/17 at 21:00 Carvedilol (Coreg) 3.125 mg BID PO Last administered on 04/11/17 08:09; Admin Dose 3.125 MG; Start 04/10/17 at 17:14 Pentoxifylline (Trental) 400 mg DAILY PO Last administered on 04/11/17 08:09; Admin Dose 400 MG; Start 04/11/17 at 09:00 Atorvastatin Calcium (Lipitor) 10 mg DAILY@21 PO Last administered on 20:29; Admin Dose 10 MG; Start 04/10/17 at 21:00 Assessment/Plan Chief Complaint/Hosp Course 36 yo female with IDDM, ESRD, HTN, Left Cotton's Palsy admitted with severe hyperglycemia Glucose >600 with witnessed seizure activity. No further seizures reported suspect etiology secondary to hyperglycemia. Will obtain MRI Brain w/o contrast shows multiple white matter changes likely from chronic hypertension, DM related to small vessel disease Routine EEG report pending will hold off on initiated AED at this time, if further seizures will recommend treatment seizure precautions, ativan prn seizure activity infectious w/u, maintain euglycemia driving prohibited up to 6 mo. per [place] state regulations Problems: DANE SUTHERLAND MD Apr 11, 2017 10:40
[2017-04-11 12:23] LABS: BASOPHIL # 0.1 10^3/ul (0.0-0.1); BASOPHILS % 0.6 % (0.0-2.0); EOSINOPHILS # 0.2 10^3/ul (0.0-0.5); EOSINOPHILS % 2.4 % (0.0-7.0); HEMATOCRIT 30.8 % (37.0-47.0); HEMOGLOBIN 10.3 g/dl (12.0-16.0); LYMPHOCYTES # 2.3 10^3/ul (0.8-2.9); LYMPHOCYTES % 27.4 % (15.0-51.0); MEAN CORPUSCULAR HEMOGLOBIN 29.6 pg (29.0-33.0); MEAN CORPUSCULAR HGB CONC 33.4 g/dl (32.0-37.0); MEAN CORPUSCULAR VOLUME 88.5 fl (82.0-101.0); MEAN PLATELET VOLUME 10.7 fl (7.4-10.4); MONOCYTE # 0.8 10^3/ul (0.3-0.9); MONOCYTES % 9.1 % (0.0-11.0); NEUTROPHILS % 60.1 % (39.0-77.0); PLATELET COUNT 273 10^3/UL (140-415); RED BLOOD COUNT 3.48 10^6/ul (4.20-5.40); RED CELL DISTRIBUTION WIDTH 13.7 % (11.5-14.5); WHITE BLOOD COUNT 8.3 10^3/ul (4.8-10.8)
[2017-04-11 12:26] LABS: ALBUMIN/GLOBULIN RATIO 1.08; CALCIUM 8.4 mg/dl (8.4-10.2); CREATININE 9.78 mg/dl (0.44-1.00); TOTAL PROTEIN 7.7 g/dl (6.1-8.1)
--- NOTE | 2017-04-11 13:34 | PN ---
DATE: 04/11/2017 SUBJECTIVE: The patient is stable. No events overnight. No fevers, chills, nausea, vomiting, no s hortness of breath. The patient is pending hemodialysis today. OBJECTIVE: VITAL SIGNS: Blood pressure is 155/88, temperature 98.3, pulse is 78, respirations 20. HEENT: Head is normocephalic. NECK: Supple. HEART: Regular rate. LUNGS: Show diminished breath sounds at base. ABDOMEN: Soft, nontender to palpation without rebound or guarding. EXTREMITIES: Negative for clubbing, cyanosis, no edema. DERMATOLOGIC: No rashes. MUSCULOSKELETAL: No joint effusions. NEUROLOGIC: No change in exam. MEDICATIONS: Have been reviewed. LABORATORY DATA: Has been reviewed. ASSESSMENT AND PLAN: 1. End-stage renal disease. Plan for hemodialysis today. Will dialyze for 3 hours on 3 K bath, ca lcium 2.5. The patient's access is Perm-A-Cath 2. Anemia. Continue to monitor change . We will give Epogen as needed. 3. Hypertension. Continue current blood pressure regimen. Continue ultrafiltration dialysis. 4. monitor calcium and phosphorus levels. 5. Diabetes. Continue current insulin regimen. 6. History of new onset seizures. Follow up with neurology. Dictated By: NIDA MCNAMARA/BG Conf#: [id number] DID#: [id number]
--- NOTE | 2017-04-11 13:42 | PDOCDIS ---
Discharge Instructions DIAGNOSIS Discharge Diagnosis Seizure CONDITION Patient Condition: Fair FOLLOW UP/APPOINTMENTS Follow-up Plan It is very important to maintain good control of your blood sugar to prevent seizures Continue takign insulin everday as your doctor has prescribed CARLITA LAMA MD Apr 11, 2017 13:42
--- NOTE | 2017-04-11 17:40 | SP ---
DATE OF PROCEDURE: 04/10/2017 EEG REPORT HISTORY: This is a 36-year-old woman with end-stage renal disease, diabetes, was admitted with high blood glucose. EEG is to rule out seizure activity. CURRENT MEDICATIONS: 1. Trental 2. Lipitor. 3. Norvasc. PROCEDURE: Utilizing a 16-channel EEG machine, cap scalp electrodes were applied in accordance with International 10-20 system. [id number] and heyei-fk-hhr montages were displayed. Electrical i mpedances were measured and reported. DESCRIPTION: During the resting state, posterior dominant rhythm of about 7 to 8 Hz were seen bihem ispherically. Photic stimulation had a good response. Hyperventilation did not attenuate the rhyth m. There was no focal lateralizing or epileptiform discharge identified. INTERPRETATION: This is a mildly abnormal EEG due to presence of mild generalized background slowin g without any epileptiform activity consistent with mild encephalopathy. Please correlate these fin dings with the patient's clinical picture. Dictated By: LAURO VOGT/BG Conf#: [id number] DID#: [id number]
--- NOTE | 2017-04-12 10:42 | DS ---
Date/Time of Note Date/Time of Note DATE: 04/12/17 TIME: 10:41 Discharge Summary Admission/Discharge Info Admit Date/Time Apr 10, 2017 at 02:33 Discharge Date/Time Apr 11, 2017 at 17:55 Discharge Diagnosis Seizure Patient Condition: Fair Hx of Present Illness Chief complaint: Seizure This is a 36 her female who comes in today complaining of having seizure. Patient states that for the past few days she has not felt well. She states that she did have dialysis earlier in the day. After dialysis she states that she was walking and she she felt a tingling in her leg and while she was walking she started feeling lightheaded and fainted her was there to catch her. states that the patient passed out and that she started having jerking movements and she was unconscious. It took her some time to recover after the jerking movement stopped. Patient reports that she is compliant with her diabetes medication however she does not check her blood glucose levels daily. She denies any recent illnesses or sick contacts. She denies any recent fevers. Allergies: NKDA Medications: See [facility] Hospital Course 36 yo female with IDDM, ESRD, HTN, Left Cotton's Palsy admitted with severe hyperglycemia Glucose >600 with witnessed seizure activity. No further seizures reported suspect etiology secondary to hyperglycemia. Patient was found to have severe hyperglycemia. This was corrected with IV insulin. She underwent EEG which was unremarkable. Head imaging showed findigns consistent with chronic hyperglycemia. She was seen by neurologist who did not recommend starting AEDs at this time. She was discharged with recommendation to maintain euglycemia to prevent further seizures. She also underwent 1 HD session Home Meds Reported Medications Pentoxifylline* (Pentoxifylline*) 400 Mg Tablet.sa, 400 MG PO DAILY, TAB 04/10/17 Atorvastatin* (Atorvastatin*) 40 Mg Tablet, 40 MG PO QHS, #30 TAB 04/10/17 Carvedilol* (Carvedilol*) 3.125 Mg Tablet, 3.125 MG PO BID, #60 TAB 04/10/17 Insulin Glargine* (Lantus*) 100 Unit/Ml Soln, 20 UNIT SC QHS, #1 VIAL 04/10/17 Losartan Potassium* (Losartan Potassium*) 25 Mg Tablet, 25 MG PO DAILY Y for HTN , TAB 04/10/17 Amlodipine Besylate* (Amlodipine Besylate*) 10 Mg Tablet, 10 MG PO DAILY for HTN , #30 TAB 04/09/17 Pravastatin Sodium* (Pravastatin Sodium*) 40 Mg Tablet, 40 MG PO HS, TAB 04/09/17 Acetaminophen* (Acetaminophen*) 500 MG Extra Strength Tablet, 500 MG PO Q4H Y for PAIN AND OR ELEVATED TEMP, TAB 04/09/17 Discontinued Reported Medications Acetaminophen* (Tylenol*) 500 Mg Tab, 1000 MG PO Q4H Y for PAIN AND OR ELEVATED TEMP, TAB 04/09/17 Follow-up Plan It is very important to maintain good control of your blood sugar to prevent seizures Continue takign insulin everday as your doctor has prescribed Primary Care Provider Basil Harris Pending Labs Laboratory Tests Test 04/11/17 11:28 04/11/17 12:28 04/11/17 17:36 White Blood Count 8.310^3/ul (4.8-10.8) Red Blood Count 3.4810^6/ul (4.20-5.40) Hemoglobin 10.3g/dl (12.0-16.0) Hematocrit 30.8% (37.0-47.0) Mean Corpuscular Volume 88.5fl (82.0-101.0) Mean Corpuscular Hemoglobin 29.6pg (29.0-33.0) Mean Corpuscular Hemoglobin Concent 33.4g/dl (32.0-37.0) Red Cell Distribution Width 13.7% (11.5-14.5) Platelet Count 40785^3/UL (140-415) Mean Platelet Volume 10.7fl (7.4-10.4) Neutrophils % 60.1% (39.0-77.0) Lymphocytes % 27.4% (15.0-51.0) Monocytes % 9.1% (0.0-11.0) Eosinophils % 2.4% (0.0-7.0) Basophils % 0.6% (0.0-2.0) Nucleated Red Blood Cells % 0.0/100WBC (0.0-0.0) Neutrophils # 5.010^3/ul (1.6-7.5) Lymphocytes # 2.310^3/ul (0.8-2.9) Monocytes # 0.810^3/ul (0.3-0.9) Eosinophils # 0.210^3/ul (0.0-0.5) Basophils # 0.110^3/ul (0.0-0.1) Nucleated Red Blood Cells # 0.010^3/ul (0.0-0.0) Sodium Level 137mmol/L (135-144) Potassium Level 5.0mmol/L (3.5-5.1) Chloride Level 96mmol/L (97-110) Carbon Dioxide Level 27mmol/L (21-31) Anion Gap 19 (8-16) Blood Urea Nitrogen 58mg/dl (7-20) Creatinine 9.78mg/dl (0.44-1.00) Glucose Level 151mg/dl (70-220) Calcium Level 8.4mg/dl (8.4-10.2) Total Bilirubin 0.0mg/dl (0.2-1.3) Direct Bilirubin 0.00mg/dl (0.00-0.20) Indirect Bilirubin 0.0mg/dl (0-1.1) Aspartate Amino Transf (AST/SGOT) 83IU/L (15-46) Alanine Aminotransferase (ALT/SGPT) 14IU/L (13-69) Alkaline Phosphatase 105IU/L (42-121) Total Protein 7.7g/dl (6.1-8.1) Albumin 4.0g/dl (3.3-4.9) Globulin 3.70g/dl (1.3-3.2) Albumin/Globulin Ratio 1.08 Bedside Glucose 133mg/dL (70-220) 210mg/dL (70-220) CARLITA LAMA MD Apr 12, 2017 10:42
== END 2017-04-11 17:55 | disposition home or self-care (01) | DRG 637 ==
LOC: E/R 21:54 → TEL 04-10 02:33
PROVIDERS: ADMIT Family Medicine; ATTEND Family Medicine
PROC: 5A1D70Z Performance of Urinary Filtration, Intermittent, Less than 6 Hours Per Day (ICD-10-PCS; principal; 2017-04-10)
DX: E11.10 Type 2 diabetes mellitus with ketoacidosis without coma (principal); G93.40 Encephalopathy, unspecified; R56.9 Unspecified convulsions; I12.0 Hypertensive chronic kidney disease with stage 5 chronic kidney disease or end stage renal disease; N18.6 End stage renal disease; E11.22 Type 2 diabetes mellitus with diabetic chronic kidney disease; Z99.2 Dependence on renal dialysis; G51.0 Bell's palsy; E78.5 Hyperlipidemia, unspecified
CPT/HCPCS: 36415; 70450; 70551; 71010; 80053; 82550; 82553; 82803; 82962; 83036; 83735; 84100; 84484; 85025; 87081; 90935; 93005; 95819; 96372; 96374; 96375; C9113; J1815

== ENCOUNTER 2017-04-16 05:50 | Emergency (ER) | payer MEDICAID ==
[~2017-04-16] VITALS: Ht 157.5 cm; Wt 59.0 kg
[~2017-04-16 05:50] MED LIST: ACET-141 PO; AMLO-147 PO; ATOR40TA68 PO; CARV3.1260 PO; LANT3I SC; LOSA25TA5 PO; PENT400T2 PO; PRAV40TA76 PO
[2017-04-16 05:53] VITALS: Ht 157.5 cm; Wt 59.0 kg
--- NOTE | 2017-04-16 06:40 | RADRPT ---
PROCEDURE: CHEST - 1 VIEW CLINICAL INDICATION: 36-year-old female with chest pain. TECHNIQUE: A single frontal AP upright portable view of the chest was performed. The images were reviewed on a PACS workstation. COMPARISON: None. FINDINGS: There is a right internal jugular tunneled hemodialysis catheter with the tip at the right atrial le sy The cardiomediastinal silhouette has a normal appearance. There is no evidence for an infiltrat e. There is no evidence for congestive heart failure. There is no evidence for pneumothorax. The os seous structures are intact. IMPRESSION: 1. Right internal jugular tunneled hemodialysis catheter. 2. No evidence for active cardiopulmonary disease. .Herminio Jj MD, Date Time Electronically viewed and signed by .Herminio Jj MD, on 04/16/2017 06:40 .M/
[2017-04-16 06:59] LABS: BASOPHIL # 0.1 10^3/ul (0.0-0.1); BASOPHILS % 0.6 % (0.0-2.0); EOSINOPHILS # 0.4 10^3/ul (0.0-0.5); EOSINOPHILS % 2.8 % (0.0-7.0); HEMATOCRIT 29.8 % (37.0-47.0); HEMOGLOBIN 10.2 g/dl (12.0-16.0); LYMPHOCYTES # 3.4 10^3/ul (0.8-2.9); MEAN CORPUSCULAR HGB CONC 34.2 g/dl (32.0-37.0); MEAN CORPUSCULAR VOLUME 90.6 fl (82.0-101.0); MEAN PLATELET VOLUME 10.8 fl (7.4-10.4); MONOCYTE # 1.1 10^3/ul (0.3-0.9); MONOCYTES % 8.5 % (0.0-11.0); NEUTROPHIL # 8.4 10^3/ul (1.6-7.5); NEUTROPHILS % 62.8 % (39.0-77.0); PLATELET COUNT 302 10^3/UL (140-415); RED BLOOD COUNT 3.29 10^6/ul (4.20-5.40); RED CELL DISTRIBUTION WIDTH 13.2 % (11.5-14.5); WHITE BLOOD COUNT 13.4 10^3/ul (4.8-10.8)
[2017-04-16] MEDS ORDERED: morphine 4 MG/ML VIAL IV STA (07:17)
[2017-04-16] MEDS ORDERED: ONDANSETRON 4 MG INJ IV STA (07:17)
[2017-04-16 07:19] LABS: CALCIUM 8.7 mg/dl (8.4-10.2); CREATININE 10.63 mg/dl (0.44-1.00)
[2017-04-16 07:22] LABS: POTASSIUM 6.4 mmol/L (3.5-5.1)
[2017-04-16] MEDS ORDERED: NA BICARBONATE 8.4% 50 ML SYG IV STA (07:29)
[2017-04-16] MEDS ORDERED: INSULIN REGULAR, HUMAN 100 UNIT/1 ML 3ML VIAL IV STA (07:29)
[2017-04-16 07:30] LABS: TROPONIN-I 0.031 ng/ml (0.00-0.12)
[2017-04-16] MEDS ORDERED: DEXTROSE 50% 50 ML SYRINGE IV PRN (07:30)
[2017-04-16] MEDS ORDERED: IBUP-1542 PO (07:32)
[2017-04-16] MEDS ORDERED: HYDR-902 PO (07:32)
--- NOTE | 2017-04-16 07:35 | ERD ---
ER Documentation Chief Complaint Date/Time DATE: 04/16/17 TIME: 07:33 Chief Complaint RU CWP radiating to back(more on backpain) - pt has permacath on HD HPI This 36-year-old dialysis patient here for pain in her right chest wall and right back for the past day. The patient complains of sharp pain is worse when she takes a deep breath or when she rotates her trunk or moves. She has no shortness of breath. The patient is on hemodialysis and is due does have her dialysis treatment today a 30 in the morning. Denies any recent trauma pushing pulling lifting injury no cough. No palpitations no dyspnea on exertion ROS All systems reviewed and are negative except as per history of present illness. Medications Home Meds Active Scripts Hydrocodone/Acetaminophen ([place] 10-325 Tablet) 1 Each Tablet, 1 TAB PO Q6H Y for PAIN, #7 TAB Prov:CHARLIE SEGURA. DO 04/16/17 Ibuprofen* (Motrin*) 600 Mg Tab, 600 MG PO Q8, #30 TAB Prov:NUNU SEGURASTSAVANAS A. DO 04/16/17 Reported Medications Pentoxifylline* (Pentoxifylline*) 400 Mg Tablet.sa, 400 MG PO DAILY, TAB 04/10/17 Atorvastatin* (Atorvastatin*) 40 Mg Tablet, 40 MG PO QHS, #30 TAB 04/10/17 Carvedilol* (Carvedilol*) 3.125 Mg Tablet, 3.125 MG PO BID, #60 TAB 04/10/17 Insulin Glargine* (Lantus*) 100 Unit/Ml Soln, 20 UNIT SC QHS, #1 VIAL 04/10/17 Losartan Potassium* (Losartan Potassium*) 25 Mg Tablet, 25 MG PO DAILY Y for HTN , TAB 04/10/17 Amlodipine Besylate* (Amlodipine Besylate*) 10 Mg Tablet, 10 MG PO DAILY for HTN , #30 TAB 04/09/17 Pravastatin Sodium* (Pravastatin Sodium*) 40 Mg Tablet, 40 MG PO HS, TAB 04/09/17 Acetaminophen* (Acetaminophen*) 500 MG Extra Strength Tablet, 500 MG PO Q4H Y for PAIN AND OR ELEVATED TEMP, TAB 04/09/17 Discontinued Reported Medications Acetaminophen* (Tylenol*) 500 Mg Tab, 1000 MG PO Q4H Y for PAIN AND OR ELEVATED TEMP, TAB 04/09/17 Allergies Allergies: Coded Allergies: No Known Allergy (Unverified , 04/09/17) PMhx/Soc History of Surgery: Yes (eye surgery (10/2015)) Anesthesia Reaction: No 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)) Hx Respiratory Disorders: No Hx Cardiac Disorders: Yes (HTN) Hx Psychiatric Problems: No Hx Miscellaneous Medical Probl: No Hx Alcohol Use: No Hx Substance Use: No Hx Tobacco Use: No Smoking Status: Never smoker FmHx Family History: No coronary disease Physical Exam Vitals Vital Signs Date Time Temp Pulse Resp B/P Pulse Ox O2 Delivery O2 Flow Rate FiO2 04/16/17 06:59 88 16 171/97 100 04/16/17 05:53 96.1 85 20 178/92 100 Physical Exam Const: Well-developed, well-nourished Head: Atraumatic, normocephalic Eyes: Normal Conjunctiva, PERRLA, EOMI, normal sclera, no nystagmus ENT: Normal External Ears, Nose and Mouth, moist mucus membranes. Neck: Full range of motion. No meningismus, no lymphadenopathy. Resp: Clear to auscultation bilaterally, no wheezing, rhonchi, rales, there is reproducible chest wall tenderness to the right costosternal margin around ribs 3 4 and 5 as well as in the posterior rib cage consistent with the same ribs. Pushing on the posterior rib cage at this level will induce pain in the anterior rib cage Cardio: Regular rate and rhythm, no murmurs, S1 S2 present Abd: Soft, non tender x 4, non distended. Normal bowel sounds, no guarding or rebound, no pulsitile abdominal masses or bruits Skin: No petechiae or rashes, no ecchymosis , no maculopapular rash Back: No midline or flank tenderness Ext: No cyanosis, or edema, FROM x 4, normal inspection, neurovascularly intact x 4 Neur: Awake and alert, STR 5/5 x 4, sensation intact x 4, no focal findings, cerebellum intact Psych: Normal Mood and Affect Result Diagram: 04/16/1728 04/16/1728 Results 24 hrs Laboratory Tests Test 04/16/17 06:28 White Blood Count 13.410^3/ul Red Blood Count 3.2910^6/ul Hemoglobin 10.2g/dl Hematocrit 29.8% Mean Corpuscular Volume 90.6fl Mean Corpuscular Hemoglobin 31.0pg Mean Corpuscular Hemoglobin Concent 34.2g/dl Red Cell Distribution Width 13.2% Platelet Count 77366^3/UL Mean Platelet Volume 10.8fl Neutrophils % 62.8% Lymphocytes % 25.0% Monocytes % 8.5% Eosinophils % 2.8% Basophils % 0.6% Nucleated Red Blood Cells % 0.0/100WBC Neutrophils # 8.410^3/ul Lymphocytes # 3.410^3/ul Monocytes # 1.110^3/ul Eosinophils # 0.410^3/ul Basophils # 0.110^3/ul Nucleated Red Blood Cells # 0.010^3/ul Sodium Level 132mmol/L Potassium Level 6.4mmol/L Chloride Level 90mmol/L Carbon Dioxide Level 28mmol/L Anion Gap 20 Blood Urea Nitrogen 86mg/dl Creatinine 10.63mg/dl Glucose Level 232mg/dl Calcium Level 8.7mg/dl Troponin I Pending Current Medications Medications (Trade) Dose Ordered Sig/Asaf Route PRN Reason Start Time Stop Time Status Last Admin Dose Admin Morphine Sulfate (morphine) 4 mg ONCE STAT IV 04/16/17 07:17 04/16/17 07:19 DC Ondansetron HCl (Zofran Inj) 4 mg ONCE STAT IV 04/16/17 07:17 04/16/17 07:19 DC Sodium Bicarbonate (Na Bicarb 8.4% Syg) 50 ml ONCE STAT IV 04/16/17 07:29 04/16/17 07:32 DC Insulin Human Regular (Humulin R) 10 unit ONCE STAT IV 04/16/17 07:29 04/16/17 07:32 DC Dextrose (D50w Syringe) ONCE PRN IV POC BLOOD GLUCOSE <250 MG/DL 04/16/17 07:30 Procedures/MDM PROCEDURE: CHEST - 1 VIEW CLINICAL INDICATION: 36-year-old female with chest pain. TECHNIQUE: A single frontal AP upright portable view of the chest was performed. The images were reviewed on a PACS workstation. COMPARISON: None. FINDINGS: There is a right internal jugular tunneled hemodialysis catheter with the tip at the right atrial level The cardiomediastinal silhouette has a normal appearance. There is no evidence for an infiltrate. There is no evidence for congestive heart failure. There is no evidence for pneumothorax. The osseous structures are intact. IMPRESSION: 1. Right internal jugular tunneled hemodialysis catheter. 2. No evidence for active cardiopulmonary disease. .Herminio Jj MD, Date Time Electronically viewed and signed by .Herminio Jj MD, on 04/16/2017 06:40 .M/ CC: MARIYA TAYLOR Patient's potassium is 6.4. We will treat with sodium bicarb, dextrose, insulin IV. The patient has dialysis in 1 hour we will send her to dialysis ultimately correct potassium. The patient's chest pain is clearly chest wall in origin. She has very severe pain with range of motion and palpation is 100% reproducible Departure Diagnosis: Primary Impression: Hyperkalemia Additional Impression: Chest wall pain Condition: Stable Patient Instructions: Hyperkalemia, Chest Wall Pain, Costochondritis CHARLIE SEGURA DO Apr 16, 2017 07:35
[2017-04-16 08:30] VITALS: BP 144/84; PULSE 81; RESP 16; TEMP 98.9
== END 2017-04-16 08:47 | disposition home or self-care (01) ==
LOC: E/R 05:50
DX: E87.5 Hyperkalemia (principal); I10 Essential (primary) hypertension; E10.9 Type 1 diabetes mellitus without complications; Z79.4 Long term (current) use of insulin
CPT/HCPCS: 36415; 71010; 80048; 84484; 85025; 93005; 96374; 96375; J1815; J2270; J2405; Z7502; Z7610

== ENCOUNTER → 2017-04-17 | Outpatient (CLI) | payer MEDICAID ==
[~2017-04-17] MED LIST changes: +HYDR-902 PO; +IBUP-1542 PO
== END | disposition home or self-care (01) ==
LOC: DIB 10:17
PROVIDERS: ATTEND Emergency Medicine
DX: Z02.9 Encounter for administrative examinations, unspecified (principal)